=== PATIENT | female | born 1990 | race Caucasian/White ===

== ENCOUNTER 2017-12-26 02:57 | Emergency (ER) | payer OTHER ==
[~2017-12-26] VITALS: Ht 160 cm; Wt 58.6 kg
[2017-12-26 04:02] LABS: HEMATOCRIT 33.3 % (36.0-46.0); MCH 31.2 PG (29.0-34.0); MCV 94.3 FL (83-99); PLATELET COUNT 226 K/uL (156-360); RBC DIS.WIDTH-CV 15.5 % (11.8-14.6); RBC DIS.WIDTH-SD 54.1 % (39-53); RED BLOOD COUNT 3.53 M/uL (3.80-5.20); WHITE BLOOD COUNT 6.3 K/uL (4.1-10.2)
[2017-12-26 04:16] LABS: ALBUMIN 3.8 g/dL (3.2-4.8); CHLORIDE 111 mEq/L (99-109); POTASSIUM 4.1 mEq/L (3.7-5.4)
[2017-12-26 04:17] LABS: SODIUM 146 mEq/L (136-147)
[2017-12-26 04:19] LABS: GLUCOSE 83 mg/dL (70-99); TOTAL PROTEIN 5.9 g/dL (6.4-8.3)
[2017-12-26 04:21] LABS: TOTAL BILIRUBIN 0.3 mg/dL (0.0-1.0)
[2017-12-26 04:22] LABS: ALKALINE PHOSPHATASE 62 IU/L (3-129); SERUM ETHYL ALCOHOL 343 mg/dL
[2017-12-26 04:23] LABS: CREATININE 0.8 mg/dL (0.6-1.3)
[2017-12-26 04:24] LABS: AST (GOT) 20 IU/L (2-34); GFR ESTIMATE (CALCULATED) > 59 mL/min/; UREA NITROGEN (BUN) 7 mg/dL (9-23)
[2017-12-26 04:25] LABS: ALT (GPT) 13 IU/L (3-49)
[2017-12-26 07:44] VITALS: BP 105/80
== END 2017-12-26 07:45 | disposition home or self-care (01) ==
LOC: EME 02:57
PROVIDERS: Emergency Medicine
DX: F10.121 Alcohol abuse with intoxication delirium (principal); Y90.8 Blood alcohol level of 240 mg/100 ml or more; R55 Syncope and collapse; W18.39XA Other fall on same level, initial encounter; Y92.89 Other specified places as the place of occurrence of the external cause
CPT/HCPCS: 70450; 72125; 80053; 85027; 99281; 99285; G0480